=== PATIENT | male | born 1990 | race African-American/Black ===

== ENCOUNTER 2025-03-04 12:18 | Outpatient (CLI) | payer BC | END 2025-03-04 12:19 | disposition home or self-care (01) | LOC: RAD 12:18 | PROVIDERS: ATTEND Thoracic Surgery (Cardiothoracic Vascular Surgery) | DX: J86.9 Pyothorax without fistula (principal); J90 Pleural effusion, not elsewhere classified | CPT/HCPCS: 71046 ==